=== PATIENT | male | born 1960 | race Caucasian/White ===

== ENCOUNTER 2022-07-03 18:04 | Emergency (ER) | payer OTHER ==
[~2022-07-03] VITALS: Ht 170.2 cm; Wt 65.3 kg
[~2022-07-03 18:04] MED LIST: BACL10TA4 PO; CITA20TA15 PO; GABA100C PO; GLU500; HYDR-5191 PO; ISOS10TA; OMEP-303 PO; ONDA4TAB PO; PIOG45TA39 PO; QUET100T PO; SIMV10TA92 PO; VALS80TA2 PO
[2022-07-03 18:10] VITALS: BP 122/68
[2022-07-03 18:24] VITALS: BP 99/70
--- NOTE | 2022-07-03 19:28 | NUR ---
MID LEVEL AT BEDSIDE. PENDING DISPO
[2022-07-03] MEDS ORDERED: BENZ200C4 PO (19:33)
[2022-07-03] MEDS ORDERED: SUD30 PO (19:33)
--- NOTE | 2022-07-03 19:39 | NUR ---
Patient discharged with v/s stable. Written and verbal after care instructions given and explained. Patient verbalized understanding. Ambulatory with steady gait. All questions addressed prior to discharge. Advised to follow up with PMD.
== END 2022-07-03 19:39 | disposition home or self-care (01) ==
LOC: MED 18:04
DX: J40 Bronchitis, not specified as acute or chronic (principal); I25.2 Old myocardial infarction; E11.9 Type 2 diabetes mellitus without complications; I10 Essential (primary) hypertension; Z95.5 Presence of coronary angioplasty implant and graft; Z79.899 Other long term (current) drug therapy; Z79.891 Long term (current) use of opiate analgesic
CPT/HCPCS: 71045; 99283; Q0092